=== PATIENT | male | born 1980 | race Caucasian/White ===

== ENCOUNTER 2018-01-20 22:28 | Inpatient (IN) | payer OTHER ==
[~2018-01-20] VITALS: Ht 162.6 cm; Wt 78.7 kg
[2018-01-20 22:34] VITALS: Ht 162.6 cm; Wt 78.7 kg
[2018-01-21 00:03] LABS: PLATELET COUNT 201 x10^3mcL (130-400)
[2018-01-21 00:10] LABS: CALCIUM 8.6 mg/dL (8.5-10.1); CARBON DIOXIDE 24.5 mmol/L (21-32); CHLORIDE SERUM 102 mmol/L (98-107); CREATININE SERUM 0.9 mg/dL (0.7-1.3); GFR1 > 60 mL/min; GLUCOSE SERUM 110 mg/dL (74-106); POTASSIUM SERUM 4.1 mmol/L (3.5-5.1); SODIUM SERUM 136 mmol/L (136-145)
[2018-01-21 00:23] LABS: RED CELL DISTRIBUTION WIDTH 17.1 % (11.5-14.5)
[2018-01-21 00:25] LABS: ALBUMIN 3.4 g/dL (3.4-5.0); ALKALINE PHOSPHATASE 92 U/L (46-116); ALT/SGPT 18 U/L (16-63); AST/SGOT 15 U/L (15-37); BILIRUBIN TOTAL 0.5 mg/dL (0.20-1.00); FREE T4 0.97 ng/dL (0.76-1.46); LIPASE 136 IU/L (73-393); TOTAL PROTEIN, SERUM 7.1 g/dL (6.4-8.2)
[2018-01-21 01:18] LABS: BAND NEUTROPHIL 4 % (0-10); BASOPHIL 0 % (0-2); MONOCYTE 2 % (0-7); SEGMENTED NEUTROPHILS 91 % (37-75); rbc morphology (normal/abnorm) ABNORMAL (NORMAL)
[2018-01-21 01:54] LABS: microscopic required? YES; urine erythrocyte NEGATIVE (NEGATIVE)
[2018-01-21] MEDS ORDERED: PROTONIX TR40 M1 PO (02:38)
[2018-01-21] MEDS ORDERED: NATURAL IRON65 MG (03:09)
[2018-01-21 03:59] LABS: MAGNESIUM 1.6 mg/dL (1.8-2.4); PHOSPHOROUS 4.6 mg/dL (2.5-4.9)
[2018-01-21 04:06] VITALS: BP 102/63
[2018-01-21 04:06] LABS: CHOLESTEROL/HDL RATIO 2.9
[2018-01-21 04:40] LABS: TOTAL IRON BINDING CAPACITY 323 ug/dL (250-450)
[2018-01-21 04:46] LABS: RED BLOOD CELLS 4.94 M/mm3 (4.52-5.90)
[2018-01-21 04:49] LABS: IRON 19 ug/dL (65-170)
[2018-01-21 05:11] VITALS: BP 102/63
[2018-01-21 06:49] LABS: CALCIUM 7.9 mg/dL (8.5-10.1); CARBON DIOXIDE 25.7 mmol/L (21-32); CHLORIDE SERUM 108 mmol/L (98-107); CREATININE SERUM 0.7 mg/dL (0.7-1.3); GFR1 > 60 mL/min; GLUCOSE SERUM 97 mg/dL (74-106); MAGNESIUM 1.8 mg/dL (1.8-2.4); PHOSPHOROUS 3.7 mg/dL (2.5-4.9); POTASSIUM SERUM 3.9 mmol/L (3.5-5.1); SODIUM SERUM 140 mmol/L (136-145)
[2018-01-21 07:03] LABS: BASOPHIL % 0.1 % (0-2); PLATELET COUNT 174 x10^3mcL (130-400)
[2018-01-21 07:22] LABS: RED CELL DISTRIBUTION WIDTH 16.9 % (11.5-14.5)
[2018-01-21 08:13] LABS: tear drop cell (dacryocyte) 1+
[2018-01-21 08:15] LABS: rbc morphology (normal/abnorm) ABNORMAL (NORMAL)
[2018-01-21 09:43] VITALS: BP 95/56
[2018-01-21 13:00] LABS: AMPHETAMINE QUAL UR POSITIVE (See below)
[2018-01-21 16:54] VITALS: BP 104/64
[2018-01-21 21:11] VITALS: BP 120/71
[2018-01-22 05:21] VITALS: BP 119/99
[2018-01-22 06:30] LABS: CALCIUM 8.5 mg/dL (8.5-10.1); CARBON DIOXIDE 26.9 mmol/L (21-32); CHLORIDE SERUM 109 mmol/L (98-107); CREATININE SERUM 0.7 mg/dL (0.7-1.3); GFR1 > 60 mL/min; GLUCOSE SERUM 86 mg/dL (74-106); POTASSIUM SERUM 4.9 mmol/L (3.5-5.1); SODIUM SERUM 140 mmol/L (136-145)
[2018-01-22 06:41] LABS: BASOPHIL % 0.5 % (0-2); PLATELET COUNT 258 x10^3mcL (130-400)
[2018-01-22 06:49] LABS: RED CELL DISTRIBUTION WIDTH 17.7 % (11.5-14.5)
[2018-01-22 08:36] VITALS: BP 107/74
[2018-01-22] MEDS ORDERED: KEFLEX500 M1 PO (12:55)
[2018-01-22 16:17] VITALS: BP 107/74
[2018-01-22 16:36] VITALS: BP 108/62
== END 2018-01-22 18:35 | disposition home or self-care (01) | DRG 812 ==
LOC: EDBD 22:28 → ED 22:28 → MU 01-21 02:09
PROVIDERS: Emergency Medicine; Family Medicine; Internal Medicine
DX: T43.621A Poisoning by amphetamines, accidental (unintentional), initial encounter (principal); N17.0 Acute kidney failure with tubular necrosis; A41.9 Sepsis, unspecified organism; G92 Toxic encephalopathy; N39.0 Urinary tract infection, site not specified; E83.42 Hypomagnesemia; F15.93 Other stimulant use, unspecified with withdrawal; D50.9 Iron deficiency anemia, unspecified; K20.9 Esophagitis, unspecified; Z68.27 Body mass index [BMI] 27.0-27.9, adult; Y92.89 Other specified places as the place of occurrence of the external cause
CPT/HCPCS: 83880; 84439; A9698; J0696; J2916; J3370; J3475; J3490; J7030; Q0092